=== PATIENT | female | born 1970 | race Caucasian/White ===

== ENCOUNTER 2024-01-06 09:00 | Outpatient (RCR) | payer OTHER, SELFPAY ==
[2024-01-06 10:32] VITALS: BP 120/75; PULSE 82; RESP 16; TEMP 36.7; O2SAT 99
[2024-01-06 10:59] VITALS: BP 112/75; PULSE 81; RESP 20; TEMP 36.7; O2SAT 97
[2024-01-06 11:40] VITALS: BP 118/61; RESP 18; TEMP 36.7; O2SAT 97
[2024-01-06 11:44] VITALS: BP 119/70; PULSE 77; RESP 18; TEMP 36.8; O2SAT 97
[2024-01-06 13:45] VITALS: BP 136/78; PULSE 81; RESP 16; TEMP 37.1; O2SAT 97
== END 2024-07-03 23:59 | disposition home or self-care (01) ==
LOC: CCIC 09:00
PROVIDERS: Visit Provider Clinical Nurse Specialist
DX: D53.9 Nutritional anemia, unspecified (principal)
CPT/HCPCS: 36415; 36430; 86850; 86900; 86901; 86922; P9016